=== PATIENT | male | born 1965 | race Caucasian/White ===

== ENCOUNTER 2017-03-09 16:09 | Emergency (ER) | payer BC ==
[~2017-03-09 16:09] MED LIST: MELATONIN3 MG PO; NORCO 325 MG-51 TAB PO; PEPCID20 M1 PO; PRISTIQ50 M1 PO; ST. JOSEPH81 M2 PO; [UNRECOGNIZED DRUG - OTHER] PO
[2017-03-09] MEDS ORDERED: CELEXA 20MG20 MG/TA1 PO (16:19)
[2017-03-09 19:34] VITALS: BP 142/86
== END 2017-03-09 19:33 | disposition home or self-care (01) ==
LOC: ED 16:09
DX: K59.00 Constipation, unspecified (principal); Z98.890 Other specified postprocedural states; K91.89 Other postprocedural complications and disorders of digestive system
CPT/HCPCS: J1885

== ENCOUNTER → 2018-04-30 | Outpatient (CLI) | payer BC ==
[~2018-04-30] MED LIST changes: +CELEXA 20MG20 MG/TA1 PO
== END ==
LOC: CARDLAB 08:20 → CARDREHAB 14:48
DX: R94.39 Abnormal result of other cardiovascular function study (principal)

== ENCOUNTER → 2018-05-01 | Outpatient (CLI) | payer BC | LOC: RAD 08:47 | DX: R05 Cough (principal); R91.8 Other nonspecific abnormal finding of lung field ==

== ENCOUNTER 2021-06-18 08:25 | Emergency (ER) | payer BC ==
[~2021-06-18 08:25] MED LIST changes: +AMLODIPINE BES2.5 MG PO; +ATORVASTATIN CA20 MG PO; +BISOPROLOL FUMA10 M1 PO; +NAPROXEN250 M2 PO
[2021-06-18] MEDS ORDERED: OMEPRAZOLE40 MG PO (08:32)
[2021-06-18 08:50] LABS: HEMATOCRIT 45.7 % (42.0-52.0); HEMOGLOBIN 15.3 g/dL (13.5-18.0); MEAN CELL VOLUME 87 fl (78-100); MEAN CORPUSCULAR HEMOGLOBIN 29 pg (27-31); MEAN CORPUSCULAR HGB CONC 34 g/dL (33-37); PLATELET COUNT 144 K/mm3 (130-400); RED BLOOD COUNT 5.23 M/mm3 (4.20-5.60); RED CELL DISTRIBUTION WIDTH 12.7 % (11.5-14.5); WHITE BLOOD COUNT 3.9 K/mm3 (4.8-10.8)
[2021-06-18 08:57] LABS: POTASSIUM 4.2 mmol/L (3.5-5.1); SODIUM 139 mmol/L (136-145)
[2021-06-18 08:59] LABS: CALCIUM 8.8 mg/dL (8.3-10.5)
[2021-06-18 09:00] LABS: GLUCOSE 102 mg/dL (75-110); TOTAL PROTEIN 7.3 g/dL (6.4-8.3)
[2021-06-18 09:01] LABS: CARBON DIOXIDE 23 mmol/L (22-29)
[2021-06-18 09:02] LABS: TOTAL BILIRUBIN 0.9 mg/dL (0.2-1.2)
[2021-06-18 09:04] LABS: LYMPHOCYTE 35 % (20-51); NEUTROPHILS 48 % (42-75)
[2021-06-18 09:05] LABS: AST-SGOT 31 U/L (5-34); MONOCYTE 13 % (3-10)
[2021-06-18 09:06] LABS: ALT/SGPT 35 U/L (0-55)
[2021-06-18 09:29] LABS: TROPONIN-I < 0.03 ng/mL (<0.030)
[2021-06-18] MEDS ORDERED: PROAIR HFA0.09 MG/AC IH (09:50)
[2021-06-18] MEDS ORDERED: PREDNISONE20 M1 PO (09:50)
[2021-06-18] MEDS ORDERED: MORGIDOX 1X100100 MG PO (09:50)
[2021-06-18 10:11] VITALS: BP 144/88
== END 2021-06-18 09:58 | disposition home or self-care (01) ==
LOC: ED 08:25
PROVIDERS: Nurse Practitioner
DX: U07.1 COVID-19 (principal); I10 Essential (primary) hypertension; E78.00 Pure hypercholesterolemia, unspecified; Z79.899 Other long term (current) drug therapy
CPT/HCPCS: J7512

== ENCOUNTER → 2021-12-19 | Outpatient (CLI) | payer BC ==
[~2021-12-19] MED LIST changes: +MORGIDOX 1X100100 MG PO; +OMEPRAZOLE40 MG PO; +PREDNISONE20 M1 PO; +PROAIR HFA0.09 MG/AC IH
[2021-12-19 10:54] LABS: BASO # 0.06 K/mm3 (0.02-0.10); EOS # 0.33 K/mm3 (0.04-0.40); EOS % 3.8 % (0.0-4.0); HEMATOCRIT 42.5 % (42.0-52.0); HEMOGLOBIN 14.3 g/dL (13.5-18.0); LYMPH# 3.12 K/mm3 (1.50-4.00); MEAN CELL VOLUME 89 fl (78-100); MEAN CORPUSCULAR HEMOGLOBIN 30 pg (27-31); MEAN CORPUSCULAR HGB CONC 34 g/dL (33-37); MEAN PLATELET VOLUME 9.9 fl (7.4-10.4); MONO # 1.13 K/mm3 (0.20-0.80); PLATELET COUNT 215 K/mm3 (130-400); RED BLOOD COUNT 4.79 M/mm3 (4.20-5.60); RED CELL DISTRIBUTION WIDTH 13.3 % (11.5-14.5); WHITE BLOOD COUNT 8.8 K/mm3 (4.8-10.8)
[2021-12-19 11:15] LABS: ALBUMIN 4.2 g/dL (3.5-5.0)
[2021-12-19 11:16] LABS: POTASSIUM 4.3 mmol/L (3.5-5.1)
[2021-12-19 11:17] LABS: CALCIUM 8.8 mg/dL (8.3-10.5)
[2021-12-19 11:20] LABS: TOTAL BILIRUBIN 1.3 mg/dL (0.2-1.2)
[2021-12-19 11:34] LABS: D-DIMER 0.21 mg/L FEU (0.15-0.50)
== END ==
LOC: LAB 10:21
PROVIDERS: Nurse Practitioner Family
DX: M79.661 Pain in right lower leg (principal)

== ENCOUNTER → 2024-06-24 | Outpatient (CLI) | payer OTHER ==
[~2024-06-24] MED LIST changes: +FLOMAX0.4 MG PO; +PERCOCET 325 MG1 TA2 PO; +ZOFRAN ODT4 MG PO
== END ==
LOC: RAD 10:37
DX: R06.02 Shortness of breath (principal)